=== PATIENT | female | born 1955 | race Caucasian/White ===

== ENCOUNTER 2017-12-14 16:37 | Outpatient (CLI) | payer OTHER | END 2017-12-14 16:38 | disposition critical access hospital (66) | LOC: EMS 16:37 | PROVIDERS: ATTEND Surgery | DX: R06.02 Shortness of breath (principal); R07.9 Chest pain, unspecified | CPT/HCPCS: A0425; A0427 ==

== ENCOUNTER 2017-12-14 17:06 | Emergency (ER) | payer OTHER ==
[2017-12-14] MEDS ORDERED: IOPAMIDOL-300 100 ML VIAL IVP ONE ×2 (17:07→20:33)
--- NOTE | 2017-12-14 17:45 | XRAY Preliminary Report ---
Exam: XR CHEST 2 VIEW X-RAY IMPRESSION: 1. Bibasilar dependent atelectasis and a small right pleural effusion. Basilar pneumonia not excluded . [facility] SITE ID: [id number]
--- NOTE | 2017-12-14 17:45 | XRAY Report ---
EXAM: CHEST RADIOGRAPHY EXAM DATE: 12/14/2017 05:29 PM. CLINICAL HISTORY: Chest pain. COMPARISON: None. TECHNIQUE: 2 views. FINDINGS: Lungs/Pleura: There are bibasilar dependent patchy densities. There is mild blunting of the lateral r ight costophrenic angle. The mid and upper lung zones are clear. No pneumothorax. Mediastinum: Heart and mediastinal contours are unremarkable. Other: None. IMPRESSION: 1. Bibasilar dependent atelectasis and a small right pleural effusion. Basilar pneumonia not excluded . [facility] Referring Provider Line: [phone] SITE ID: [id number]
--- NOTE | 2017-12-14 18:07 | ED Physician Documentation ---
PD HPI CHEST PAIN - Stated complaint Stated Complaint: SOA - Chief complaint Chief Complaint: Cardiac - History obtained from History obtained from: Patient, EMS - History of Present Illness Timing - onset: Last night Timing - onset during: Rest Timing - duration: Days (1) Timing - details: Abrupt onset, Still present (onet left thoracic pain with lying on side, some positions/movements, and particularly with breathing even moderately deeply.) Quality: Sharp, Stabbing, Pain Location: Left chest, Left shoulder/arm, Upper back Radiation: Back. No: Neck, Abdominal Improved by: Rest Worsened by: Exertion, Inspiration, Position. No: Palpation Associated symptoms: Shortness of air, Other (had had long car ride to [place] in October and also plane flight. No leg edema nor calf swelling. Had some calf cramping pains last night.). No: Nausea, Vomiting, Feeling faint / dizzy, General Weakness, Palpitations, Cough Similar symptoms before: Has not had sx before Recently seen: Not recently seen Review of Systems Constitutional: denies: Fever, Chills, Myalgias Nose: reports: Congestion. denies: Rhinorrhea / runny nose Throat: denies: Sore throat Cardiac: denies: Palpitations, Pedal edema, Calf pain Respiratory: reports: Dyspnea. 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 - Present Medications Home Medications: Ambulatory Orders Medication Instructions Recorded Confirmed Dexamethasone [Decadron] 4 mg PO DAILY #5 tablet 12/14/17 Doxycycline Monohydrate 100 mg PO BID #14 tablet 12/14/17 Estrogens, Conjugated [Premarin] 12/14/17 Methocarbamol [Robaxin] 500 mg PO Q6H PRN #20 tablet 12/14/17 Oxycodone HCl/Acetaminophen 1 each PO Q6H PRN #20 tablet 12/14/17 [Percocet 5-325 mg Tablet] - Allergies Allergies/Adverse Reactions: Allergies Allergy/AdvReac Type Severity Reaction Status Date / Time No Known Drug Allergies Allergy Verified 12/14/17 17:15 - Social History Does the pt smoke?: No Smoking Status: Never smoker Does the pt drink ETOH?: Yes Does the pt have substance abuse?: No - POLST Patient has POLST: No PD ED PE NORMAL - Vitals Vital signs reviewed: Yes - General General: Alert and oriented X 3, No acute distress, Well developed/nourished - HEENT HEENT: Moist mucous membranes, Pharynx benign - Neck Neck: Supple, no meningeal sign, No adenopathy - Cardiac Cardiac: RRR, No murmur, No rub - Respiratory Respiratory: Clear bilaterally, Other (guarded/ splinted breaths due to pain left back. ) - Abdomen Abdomen: Soft, Non tender - Female Female : Deferred - Rectal Rectal: Deferred - Back Back: No CVA TTP, No spinal TTP, Other (left scapular area tenderness without rash nor sores. No deformity. ) - Derm Derm: Normal color, Warm and dry, No rash - Extremities Extremities: No deformity, No tenderness to palpate - Neuro Neuro: Alert and oriented X 3, No motor deficit, Normal speech Results - Vitals Vitals: Vital Signs - 24 hr 12/14/17 12/14/17 12/14/17 17:08 19:03 20:00 Temperature 36.7 C Heart Rate 96 94 88 Respiratory 20 20 20 Rate Blood Pressure 143/88 H 128/86 H 121/106 H O2 Saturation 100 98 95 12/14/17 12/14/17 12/14/17 20:30 21:00 22:11 Temperature Heart Rate 87 86 85 Respiratory 18 Rate Blood Pressure 124/80 133/81 H 119/87 H O2 Saturation 93 95 Oxygen O2 Source Room air - Labs Labs: Laboratory Tests 12/14/17 12/14/17 12/14/17 18:36 18:36 18:36 WBC 8.0 RBC 4.56 Hgb 13.3 Hct 40.6 MCV 88.9 MCH 29.2 MCHC 32.9 RDW 14.0 Plt Count 352 MPV 8.3 Neut # 5.6 Lymph # 1.5 [place] # 0.6 Eos # 0.1 Baso # 0.1 Absolute Nucleated RBC 0.00 Nucleated RBC % 0.0 Sodium 137 Potassium 3.8 Chloride 102 Carbon Dioxide 27 Anion Gap 8.0 BUN 13 Creatinine 0.5 Estimated GFR (MDRD) 126 Glucose 96 Calcium 9.0 Total Bilirubin 0.8 AST 13 ALT 14 Alkaline Phosphatase 66 Troponin I < 0.04 Total Protein 8.0 Albumin 4.3 Globulin 3.7 Albumin/Globulin Ratio 1.2 Lipase 21 L - Rads (name of study) chest xray Radiology: Prelim report reviewed (mild infiltrate left base. No PTX. ) chest angio Radiology: Prelim report reviewed (no PE nor dissection. No lung masses. Infiltrates noted. Adrenal mass noted with suggested follow up imaging at interval. ) PD MEDICAL DECISION MAKING - ED course Complexity details: reviewed results (no dissection, PE, PTX. She has some infiltrates more left base but had not had fever/cough. Consider just atelectasis from splinted breathing but will cover with abx. No masses in lungs. Incidental adrenal mass/cyst. Defer to PMD for follow up. ), re- evaluated patient (feeling much better with IV meds. May have musculoskeletal component of the pain, and has pleuritic significantly. Infiltrate could be result of splinted breathing, but also concern for pneumonic process. ), considered differential, d/w patient Departure - Departure Disposition: 01 Home, Self Care Clinical Impression: Lung infiltrate, Pleurisy, Adrenal mass, left Acute thoracic back pain Qualifiers: Back pain laterality: left Qualified Code(s): M54.6 - Pain in thoracic spine Condition: Stable Record reviewed to determine appropriate education?: Yes Instructions: ED Chest Pain Pleurisy Follow-Up: Sharon Martinez PA [Primary Care Provider] - Prescriptions: Dexamethasone [Decadron] 4 mg PO DAILY #5 tablet Doxycycline Monohydrate 100 mg PO BID #14 tablet Methocarbamol [Robaxin] 500 mg PO Q6H PRN #20 tablet PRN Reason: Spasms Oxycodone HCl/Acetaminophen [Percocet 5-325 mg Tablet] 1 each PO Q6H PRN #20 tablet PRN Reason: Pain Comments: This may be musculoskeletal back pain though you do have a component of it sounded very pleuritic (hurting with breathing) and there was some finding of a fluid collection in the lower part of the left lung. This could be a infection or pneumonia brewing that caused inflammation and therefore the pain. However the pain and splinting breathing may have caused some compression of the lung and gave that appearance (called atelectasis). We will treated as possible infection with antibiotic doxycycline twice a day for a week. Otherwise use some anti-inflammatories such as ibuprofen or naproxen twice daily and to that add Decadron steroid anti-inflammatory, Robaxin muscle relaxant, and Tylenol or oxycodone for pain as needed. Recheck if not better completely over the next several days. There was an incidental finding of an adrenal cyst and the radiology recommendation was her repeat imaging and perhaps 6 months to make sure it is not changing. This could be done by ultrasound through your primary care. Discharge Date/Time: 12/14/17 22:24
[2017-12-14] MEDS ORDERED: ONDANSETRON 4 MG/2 ML VIAL IVP STA (18:30)
[2017-12-14] MEDS ORDERED: HYDROmorphone 1 MG/ML CARPUJECT IVP STA ×2 (18:30→21:36)
[2017-12-14] MEDS ORDERED: KETOROLAC 60 MG/2 ML VIAL IVP STA (18:30)
[2017-12-14] MEDS ORDERED: IOPAMIDOL-300 100 ML VIAL ONE (18:44)
[2017-12-14 19:04] LABS: BASOPHILS # (AUTO) 0.1 10^3/uL (0.0-0.1); BASOPHILS % (AUTO) 0.7 %; EOSINOPHILS # (AUTO) 0.1 10^3/uL (0.0-0.7); EOSINOPHILS % (AUTO) 1.7 %; HGB - HEMOGLOBIN 13.3 g/dL (12.0-16.0); LYMPHOCYTES # (AUTO) 1.5 10^3/uL (1.5-3.5); LYMPHOCYTES % (AUTO) 19.2 %; MEAN CORPUSCULAR HEMOGLOBIN 29.2 pg (27.0-31.0); MEAN CORPUSCULAR HGB CONC 32.9 g/dL (32.0-36.0); MEAN CORPUSCULAR VOLUME 88.9 fL (81.0-99.0); MEAN PLATELET VOLUME 8.3 fL (7.9-10.8); MONOCYTES # (AUTO) 0.6 10^3/uL (0.0-1.0); MONOCYTES % (AUTO) 7.8 %; NEUTROPHILS # (AUTO) 5.6 10^3/uL (1.5-6.6); NEUTROPHILS % (AUTO) 70.6 %; PLT - PLATELET COUNT 352 10^3/uL (130-450); RED BLOOD COUNT 4.56 10^6/uL (4.20-5.40)
[2017-12-14 19:16] LABS: ALBUMIN 4.3 g/dL (3.2-5.5); ALBUMIN/GLOBULIN RATIO 1.2 (1.0-2.2); BILIRUBIN,TOTAL 0.8 mg/dL (0.2-1.0); CREATININE 0.5 mg/dL (0.4-1.0)
--- NOTE | 2017-12-14 20:54 | CT Preliminary Report ---
Exam: CT CHEST ANGIO (PE) IMPRESSION: 1. No evidence for pulmonary emboli. Mild motion artifact limited. 2. oderate patchy bilateral lower lobe airspace disease and consolidations with a mild amount in the right middle lobe and lingula. These could represent bibasilar pneumonia and/or atelectasis. Breathin g motion artifact limited. Minimal left pleural effusion. 3. Left adrenal mass measuring 2.3 cm. If there is low risk for malignancy, recommend a one-year foll ow-up MR CT adrenal mass protocol to confirm stability. If there is high risk for malignancy/metastas is then more immediate workup recommended. Otherwise, as above. [facility] SITE ID: [id number]
--- NOTE | 2017-12-14 21:00 | CT Report ---
EXAM: CT ANGIOGRAM CHEST EXAM DATE: 12/14/2017 08:33 PM. CLINICAL HISTORY: Left pleuritic back/chest pain onset last night. COMPARISON: Chest 12/14/2017. TECHNIQUE: Routine helical imaging was performed through the chest in the pulmonary arterial phase. I V Contrast: 80 mL Isovue 300. Reconstructions: Coronal 3-D MIP reconstructions.Sagittal and coronal. In accordance with CT protocol optimization, one or more of the following dose reduction techniques w ere utilized for this exam: automated exposure control, adjustment of mA and/or KV based on patient s ize, or use of iterative reconstructive technique. FINDINGS: Mediastinum: No thoracic aortic aneurysm or dissection. Cardiomegaly. No mediastinal or hil ar lymphadenopathy. Pulmonary arteries: No evidence for a pulmonary emboli. Mild motion artifact limited. Lungs: Moderate patchy bilateral lower lobe airspace disease and consolidations with a mild amount in the right middle lobe and lingula. These could represent bibasilar pneumonia and/or atelectasis. Sparkle athing motion artifact limited. Minimal left pleural effusion. No pneumothorax. Upper abdomen: Left adrenal mass measures 2.3 x 2.3 cm. Couple of small low-density masses are seen i n the left hepatic lobe, largest seen in the lateral segment of the left hepatic lobe measuring 9 mm, too small to fully characterize. Osseous fusion of the T3 and T4 vertebrae. No acute bone findings seen. IMPRESSION: 1. No evidence for a pulmonary emboli. Mild motion artifact limited. 2. Moderate patchy bilateral lower lobe airspace disease and consolidations with a mild amount in the right middle lobe and lingula. These could represent bibasilar pneumonia and/or atelectasis. Breathi ng motion artifact limited. Minimal left pleural effusion. 3. Left adrenal mass measuring 2.3 cm. If there is low risk for malignancy, recommend a one-year foll ow-up MR CT adrenal mass protocol to confirm stability. If there is high risk for malignancy/metastas is, then more immediate workup recommended. Otherwise, as above. [facility] Referring Provider Line: [phone] SITE ID: [id number]
[2017-12-14] MEDS ORDERED: oxyCODONE/ACET 5/325 Prepack 4 PO STA (21:36)
[2017-12-14] MEDS ORDERED: DOXYCYCLINE 100 MG TABLET PO STA (21:36)
[2017-12-14] MEDS ORDERED: DEXAMETHASONE 10 MG/ML VIAL IVP STA (21:36)
[2017-12-14 22:11] VITALS: BP 119/87
== END 2017-12-14 22:24 | disposition home or self-care (01) ==
LOC: ED 17:06
DX: R91.8 Other nonspecific abnormal finding of lung field (principal); R09.1 Pleurisy; E27.8 Other specified disorders of adrenal gland
CPT/HCPCS: 36415; 71046; 71275; 80053; 83690; 84484; 85025; 93005; 96374; 96375; 96376; 99284; A9270; J1170; Q9967

== ENCOUNTER 2019-08-07 14:57 | Outpatient (CLI) | payer OTHER ==
--- NOTE | 2019-08-21 10:16 | Mammography Report ---
Reason: SCREENING MAMMO Procedure Date: 08/07/2019 Accession Number: [id number] / [id number] Procedure: ERIK - Screening Mammo w/Morris CPT Code: Final Report FULL RESULT: EXAM: Screening Mammo w/Morris DATE: 08/07/2019 3:33 PM CLINICAL HISTORY: The patient is an asymptomatic 64 year-old nulliparous female presenting for screening mammography. No reported family history of breast cancer. TECHNIQUE: (B) - Bilateral CC and MLO views were obtained. COMPARISON: 08/25/2016 and 09/27/2013 ([facility]) PARENCHYMAL PATTERN: (A) - The breasts demonstrate scattered fibroglandular densities bilaterally. FINDINGS: The pattern of isodense nodularity is stable given positional variation. Few scattered and punctate calcifications are noted in both breasts. There are no suspicious masses, calcifications, or areas of distortion. IMPRESSION: Benign findings. BI-RADS category 2. RECOMMENDATION: (ANNUAL) - Recommend routine annual screening mammography. BI-RADS CATEGORY: (2) - Benign Findings. STANDARD QUALIFYING STATEMENTS: 1. This examination was not reviewed with the aid of Computer-Aided Detection (CAD). 2. A negative or benign imaging report should not preclude biopsy if clinically suspicious findings are present. 3. Dense breasts may obscure an underlying neoplasm. 4. This examination was reviewed with the aid of 3D breast imaging (tomosynthesis).
== END 2019-08-07 14:58 | disposition home or self-care (01) ==
LOC: DI 14:57
PROVIDERS: ATTEND Family Medicine
DX: Z12.31 Encounter for screening mammogram for malignant neoplasm of breast (principal)
CPT/HCPCS: 77063; 77067

== ENCOUNTER 2022-08-30 11:04 | Outpatient (CLI) | payer MEDICARE ==
--- NOTE | 2022-08-31 15:22 | Mammography Report ---
BILATERAL DIGITAL SCREENING MAMMOGRAM 3D/2D WITH EXAGGERATED CC: 08/30/2022 CLINICAL: Routine screening. Comparison is made to exams dated: 08/07/2019 mammogram - [facility], 08/25/2016 ma mmogram, and 09/27/2013 mammogram - [facility]. There are scattered areas of fibroglandular density in both breasts (category b / 25%-50% glandular t issue). There is an asymmetry in the right breast middle depth central to the nipple seen on the mediolateral oblique view only. This is more prominent. No other significant masses, calcifications, or other findings are seen in either breast. IMPRESSION: INCOMPLETE: NEEDS ADDITIONAL IMAGING EVALUATION The asymmetry in the right breast is indeterminate. Additional views with possible ultrasound are re commended. Based on the Tyrer Cuzick model (a risk assessment model) the patients lifetime risk is 5.9% and her 10 year risk is 2.8%. According to the ACR, ACS, and NCCN guidelines, an annual breast MRI exam brinda g with mammogram is recommended if the patients lifetime risk is 20% or greater. This exam was interpreted at Station ID: [id number]. NOTE: For mammograms, a report in lay terms will be sent to the patient. Approximately 15% of breast malignancies will not be visualized mammographically. In the management of a palpable breast mass, a negative mammogram must not discourage biopsy of a clinically suspicious lesion. Electronically Signed By: Rory Christensen M.D. lc/:08/30/2022 13:05:43 ACR BI-RADS Category 0: Incomplete 3340F PARENCHYMAL PATTERN: (A) - The breast(s) demonstrate(s) scattered fibroglandular densities. BI-RADS CATEGORY: (0) - 0 Mammo and [place] [id number] Immediate follow-up LATERALITY: (B)
== END 2022-08-30 11:05 | disposition home or self-care (01) ==
LOC: DI.S 11:04
DX: Z12.31 Encounter for screening mammogram for malignant neoplasm of breast (principal); R92.8 Other abnormal and inconclusive findings on diagnostic imaging of breast

== ENCOUNTER 2022-09-17 08:46 | Outpatient (CLI) | payer MEDICARE ==
--- NOTE | 2022-09-17 10:43 | Mammography Report ---
UNILATERAL RIGHT DIGITAL DIAGNOSTIC MAMMOGRAM 3D/2D WITH SPOT COMPRESSION: 09/17/2022 CLINICAL: Patient returns today to evaluate an asymmetry in the right breast. Comparison is made to exams dated: 08/30/2022 mammogram, 08/07/2019 mammogram - [facility], 08/25/2016 mammogram, and 09/27/2013 mammogram - [facility]. There are scattered areas of fibroglandular density in the right breast (category b / 25%-50% glandul ar tissue). There is a 7 mm oval, bilobed, low density asymmetry with a circumscribed margin in the right breast at 1 o'clock middle depth. This is confirmed with additional views. No other significant masses or calcifications are seen in the breast. IMPRESSION: INCOMPLETE: NEEDS ADDITIONAL IMAGING EVALUATION The 7 mm oval low density asymmetry in the right breast most likely is clustered cysts or a lymph nod e but remains indeterminate. An ultrasound is recommended. This was performed immediately following this exam. Based on the Tyrer Cuzick model (a risk assessment model) the patients lifetime risk is 5.4% and her 10 year risk is 2.6%. According to the ACR, ACS, and NCCN guidelines, an annual breast MRI exam brinda g with mammogram is recommended if the patients lifetime risk is 20% or greater. This exam was interpreted at Station ID: [id number]. NOTE: For mammograms, a report in lay terms will be sent to the patient. Approximately 15% of breast malignancies will not be visualized mammographically. In the management of a palpable breast mass, a negative mammogram must not discourage biopsy of a clinically suspicious lesion. Electronically Signed By: Fabiola bullock/:09/17/2022 09:27:06 ACR BI-RADS Category 0: Incomplete 3340F PARENCHYMAL PATTERN: (A) - The breast(s) demonstrate(s) scattered fibroglandular densities. BI-RADS CATEGORY: (0) - 0 Ultrasound [id number] Immediate follow-up LATERALITY: (B)
--- NOTE | 2022-09-17 10:43 | Ultrasound Report ---
LIMITED ULTRASOUND OF RIGHT BREAST: 09/17/2022 CLINICAL: Patient returns today to evaluate a focal asymmetry in the right breast. Comparison is made to exams dated: 09/17/2022 mammogram, 08/30/2022 mammogram, 08/07/2019 mammogram - [facility], 09/27/2013 mammogram, and 08/25/2016 mammogram - [facility]. Color flow ultrasound of the right breast 1 o'clock and 10 o'clock regions was performed. Flores scale images of the real-time examination were reviewed. There is a 0.7 cm x 0.6 cm x 0.2 cm oval mass with a circumscribed margin in the right breast at 1 o' clock middle depth 8 cm from the nipple. This oval mass is isoechoic to slightly hypoechoic with a w ell-defined boundary and no posterior acoustic shadowing or enhancement. This is subtle, difficult t o differentiate from adjacent tissue. This correlates with mammography findings. Color flow imaging demonstrates that there is no vascularity present. IMPRESSION: PROBABLY BENIGN The 0.7 cm x 0.6 cm x 0.2 cm oval mass in the right breast resembles fibroglandular tissue, a lymph n ode, or a fibroadenoma and is probably benign. A follow-up right mammogram and an ultrasound in 6 months is recommended to demonstrate stability. Findings and recommendations were conveyed to the patient at time of exam. This exam was interpreted at Station ID: [id number]. Electronically Signed By: Fabiola bullock/:09/17/2022 10:00:08 Ultrasound BI-RADS: 3 Probably benign BI-RADS CATEGORY: (3) - 3 Mammo and [place] [id number] 6 month follow-up LATERALITY: (R)
== END 2022-09-17 08:47 | disposition home or self-care (01) ==
LOC: DI 08:46
PROVIDERS: ATTEND Family Medicine
DX: R92.8 Other abnormal and inconclusive findings on diagnostic imaging of breast (principal)

== ENCOUNTER 2023-05-12 16:08 | Emergency (ER) | payer MEDICARE ==
[2023-05-12 16:19] VITALS: BP 137/93; O2SAT 97
--- NOTE | 2023-05-12 17:03 | ED Physician Documentation ---
History of Present Illness - Stated complaint Stated Complaint: CHEST PX - Chief complaint Chief Complaint: Cardiac - History obtained from History obtained from: Patient - History of Present Illness Pain level max: 0 Pain level now: 0 - Additonal information Additional information: Patient is a 68-year-old female who presents the emergency department stating for the past several weeks she has had intermittent palpitations. Has a history of PVCs, she states that her Apple Watch at 1 point stated possible A-fib. Came in for evaluation today. No chest pain. No shortness of breath. No other cardiac history. No history of acute coronary syndrome. No dyspnea. No syncope or near syncope. No leg swelling. No calf swelling. 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 - Present Medications Home Medications: Ambulatory Orders Medication Instructions Recorded Confirmed Doxycycline Monohydrate 100 mg PO BID #14 tablet 12/14/17 Estrogens, Conjugated [Premarin] 12/14/17 Oxycodone HCl/Acetaminophen 1 each PO Q6H PRN #20 tablet 12/14/17 [Percocet 5-325 mg Tablet] dexAMETHasone [Decadron] 4 mg PO DAILY #5 tablet 12/14/17 methocarbamoL [Robaxin] 500 mg PO Q6H PRN #20 tablet 12/14/17 - Allergies Allergies/Adverse Reactions: Allergies Allergy/AdvReac Type Severity Reaction Status Date / Time No Known Drug Allergies Allergy Verified 05/12/23 16:14 - Social History Does the pt smoke?: No Smoking Status: Never smoker Does the pt drink ETOH?: Yes Does the pt have substance abuse?: No - POLST Patient has POLST: No PD ED PE NORMAL - Vitals Vital signs reviewed: Yes - General General: Alert and oriented X 3, No acute distress - HEENT HEENT: Moist mucous membranes - Neck Neck: Supple, no meningeal sign - Cardiac Cardiac: RRR, No murmur, Strong equal pulses - Respiratory Respiratory: No respiratory distress, Clear bilaterally - Abdomen Abdomen: Soft, Non tender, Non distended - Derm Derm: Warm and dry - Extremities Extremities: No edema, No calf tenderness / cord - Neuro Neuro: Alert and oriented X 3 - Psych Psych: Normal mood, Normal affect Results - Vitals Vitals: Vital Signs - 24 hr 05/12/23 16:10 Temperature 36.8 C Heart Rate 94 Respiratory 16 Rate Blood Pressure 137/93 H O2 Saturation 97 Oxygen O2 Source Room air - EKG (time done) 1620 EKG releavant findings:: EKG personally interpreted by author of this note. Relevant findings are: Rate: Rate (enter#) (90) Rhythm: NSR, Other (PVC) [place]: Normal Intervals: Normal RI QRS: Normal Ischemia: Normal ST segments, Q waves (III) - Labs Labs: Laboratory Tests 05/12/23 05/12/23 05/12/23 16:56 16:56 16:56 WBC 8.7 RBC 4.58 Hgb 13.3 Hct 41.7 MCV 91.0 MCH 29.0 MCHC 31.9 L RDW 14.7 Plt Count 291 MPV 11.0 H Neut # (Auto) 5.4 Lymph # (Auto) 2.5 [place] # (Auto) 0.6 Eos # (Auto) 0.2 Baso # (Auto) 0.1 Absolute Nucleated RBC 0.00 Nucleated RBC % 0.0 Sodium 137 Potassium 4.0 Chloride 104 Carbon Dioxide 26 Anion Gap 7.0 BUN 20 Creatinine 0.6 Estimated GFR (MDRD) 100 Glucose 90 Calcium 9.9 Phosphorus 4.4 Magnesium 1.9 Total Bilirubin 0.5 AST 11 ALT 11 Alkaline Phosphatase 62 Troponin I High Sens < 2.3 L Total Protein 7.6 Albumin 4.3 Globulin 3.3 Albumin/Globulin Ratio 1.3 Lipase 22 PD Medical Decision Making - ED course Complexity details: reviewed results, re-evaluated patient, considered differential, d/w patient ED course: 68-year-old female with frequent PVCs. Her Apple Watch tracings are consistent with sinus rhythm and PVCs, not atrial fibrillation. No significant lab abnormalities. No significant electrolyte abnormalities. Asymptomatic here. Recommend that she follow-up with her doctor for further care. Patient counseled regarding signs and symptoms for which I believe and urgent re- evaluation would be necessary. Patient with good understanding of and agreement to plan and is comfortable going home at this time This document was made in part using voice recognition software. While efforts are made to proofread this document, sound alike and grammatical errors may occur. Departure - Departure Disposition: 01 Home, Self Care Clinical Impression: Premature ventricular contraction Condition: Good Instructions: Premature Ventricular Contract About, Premature Ventricular Contract Tx Follow-Up: JENNIFER GARCIA DO [Primary Care Provider] - Comments: Your blood work does not show any acute abnormalities today. You do have frequent premature ventricular contractions. Your doctor may want to place you on a Holter monitor or Zio patch. This will help to define how often the PVCs are occurring and then treatment decisions can be made with cardiology. Please return if you worsen. Forms: PCP List Discharge Date/Time: 05/12/23 17:47
[2023-05-12 17:08] LABS: BASOPHILS # (AUTO) 0.1 10^3/uL (0.0-0.1); BASOPHILS % (AUTO) 0.8 %; EOSINOPHILS # (AUTO) 0.2 10^3/uL (0.0-0.7); EOSINOPHILS % (AUTO) 1.9 %; HCT - HEMATOCRIT 41.7 % (37.0-47.0); HGB - HEMOGLOBIN 13.3 g/dL (12.0-16.0); LYMPHOCYTES # (AUTO) 2.5 10^3/uL (1.5-3.5); LYMPHOCYTES % (AUTO) 28.5 %; MEAN CORPUSCULAR HGB CONC 31.9 g/dL (32.0-36.0); MONOCYTES # (AUTO) 0.6 10^3/uL (0.0-1.0); MONOCYTES % (AUTO) 6.9 %; NEUTROPHILS # (AUTO) 5.4 10^3/uL (1.5-6.6); NEUTROPHILS % (AUTO) 61.8 %; PLT - PLATELET COUNT 291 10^3/uL (130-450); RED BLOOD COUNT 4.58 10^6/uL (4.20-5.40); RED CELL DISTRIBUTION WIDTH 14.7 % (12.0-15.0); WHITE BLOOD COUNT 8.7 x10^3/uL (4.8-10.8)
[2023-05-12 17:21] LABS: ALBUMIN 4.3 g/dL (3.2-5.5); ALBUMIN/GLOBULIN RATIO 1.3 (1.0-2.2); BILIRUBIN,TOTAL 0.5 mg/dL (0.2-1.0); CALCIUM 9.9 mg/dL (8.5-10.3); CREATININE 0.6 mg/dL (0.6-1.3); MAGNESIUM 1.9 mg/dL (1.7-2.3); PHOSPHORUS 4.4 mg/dL (2.5-5.0); TOTAL PROTEIN 7.6 g/dL (6.4-8.9)
== END 2023-05-12 17:47 | disposition home or self-care (01) ==
LOC: ED 16:08
DX: I49.3 Ventricular premature depolarization (principal); Z79.899 Other long term (current) drug therapy
CPT/HCPCS: 36415; 80053; 83690; 83735; 84100; 84484; 85025; 93005; 99283; 99284

== ENCOUNTER 2023-06-23 10:47 | Outpatient (CLI) | payer MEDICARE ==
--- NOTE | 2023-06-24 08:23 | Ultrasound Report ---
LIMITED ULTRASOUND OF LEFT BREAST: 06/23/2023 CLINICAL: Patient returns today to evaluate asymmetries in bilateral breasts. Comparison is made to exams dated: 06/23/2023 mammogram, 09/17/2022 ultrasound, 09/17/2022 mammogram, 08/30/2022 mammogram, 08/07/2019 mammogram - [facility], and 08/25/2016 mammogram - [facility]. Color flow ultrasound of the left breast 12 o'clock region was performed on the areas of interest. G ray scale images of the real-time examination were reviewed. There is a 0.3 cm irregular mass in the left breast at 12 o'clock posterior depth. This irregular ma ss is hypoechoic. This correlates with mammography findings. Color flow imaging demonstrates that t here is no vascularity present. The left axilla was interogated and normal appearing lymph nodes are visualized. IMPRESSION: SUSPICIOUS OF MALIGNANCY No left axillary adenopathy. The 0.3 cm irregular mass in the left breast is at a low suspicion for malignancy. An ultrasound rand ded biopsy is recommended. This exam was interpreted at Station ID: [id number]. SUMMARY: This was discussed with the patient by the radiologist Dr. Kimbrough at the time of the exam. Electronically Signed By: Almaz lucia/:06/23/2023 12:09:59 Ultrasound BI-RADS: 4a Low suspicion for malignancy BI-RADS CATEGORY: (4a) - Low Susp Biopsy follow-up [id number] Immediate follow-up LATERALITY: (B)
--- NOTE | 2023-06-24 08:23 | Mammography Report ---
BILATERAL DIGITAL DIAGNOSTIC MAMMOGRAM 3D/2D: 06/23/2023 CLINICAL: Patient returns for a 6 month follow up of the right breast, due for bilateral exam. Comparison is made to exams dated: 09/17/2022 mammogram, 08/30/2022 mammogram, 08/07/2019 mammogram - [facility], 08/25/2016 mammogram, and 09/27/2013 mammogram - [facility]. There are scattered areas of fibroglandular density in both breasts (category b / 25%-50% glandular t issue). There is a stable focal asymmetry in the right breast at 2 o'clock posterior depth. There is a focal asymmetry in the left breast at 12 o'clock posterior depth. There is architectural distortion associated with the focal asymmetry. No other significant masses or calcifications are seen in either breast. IMPRESSION: INCOMPLETE: NEEDS ADDITIONAL IMAGING EVALUATION The stable focal asymmetry in the right breast at 2 o'clock posterior depth is indeterminate. The focal asymmetry in the left breast at 12 o'clock posterior depth is indeterminate. A targeted ultrasound of the bilateral breasts is recommended and will be performed immediately follo wing this exam. Based on the Tyrer Cuzick model (a risk assessment model) the patients lifetime risk is 5.2% and her 10 year risk is 2.6%. According to the ACR, ACS, and NCCN guidelines, an annual breast MRI exam brinda g with mammogram is recommended if the patients lifetime risk is 20% or greater. This exam was interpreted at Station ID: [id number]. NOTE: For mammograms, a report in lay terms will be sent to the patient. Approximately 15% of breast malignancies will not be visualized mammographically. In the management of a palpable breast mass, a negative mammogram must not discourage biopsy of a clinically suspicious lesion. Electronically Signed By: Almaz Higgins M.D. lk/:06/23/2023 11:47:31 ACR BI-RADS Category 0: Incomplete 3340F PARENCHYMAL PATTERN: (A) - The breast(s) demonstrate(s) scattered fibroglandular densities. BI-RADS CATEGORY: (0) - 0 Ultrasound [id number] Immediate follow-up LATERALITY: (B)
--- NOTE | 2023-06-24 08:23 | Ultrasound Report ---
LIMITED ULTRASOUND OF RIGHT BREAST: 06/23/2023 CLINICAL: Patient returns today to evaluate asymmetries in bilateral breasts. Comparison is made to exams dated: 06/23/2023 ultrasound, 06/23/2023 mammogram, 09/17/2022 ultrasound, 09/17/2022 mammogram, 08/30/2022 mammogram, and 08/07/2019 mammogram - [facility]. Color flow and real-time ultrasound of the right breast 1-2 o'clock region were performed on the area s of interest. Flores scale images of the real-time examination were reviewed. IMPRESSION: PROBABLY BENIGN There is no sonographic evidence of malignancy. There is no sonographic abnormality seen in the right breast to correspond with the mammography focal asymmetry. A follow-up mammogram and an ultrasound in 6 months is recommended to demonstrate stability. This exam was interpreted at Station ID: [id number]. Electronically Signed By: Almaz Higgins M.D. lk/:06/23/2023 12:07:53 Entry: dylan - 06/24/2023 08:16:57 Ultrasound BI-RADS: 3 Probably benign BI-RADS CATEGORY: (3) - 3 Mammo and [place] [id number] 6 month follow-up LATERALITY: (B)
== END 2023-06-23 10:48 | disposition home or self-care (01) ==
LOC: DI 10:47
PROVIDERS: ATTEND Family Medicine
DX: N63.25 Unspecified lump in the left breast, overlapping quadrants (principal); R92.8 Other abnormal and inconclusive findings on diagnostic imaging of breast

== ENCOUNTER 2023-07-14 08:43 | Outpatient (CLI) | payer MEDICARE ==
[2023-07-14] MEDS ORDERED: LIDOCAINE-MPF 1% 5 ML VIAL ONE (09:14)
[2023-07-14] MEDS ORDERED: LIDOCAINE-MPF 1% 5 ML VIAL TD ONE (10:40)
--- NOTE | 2023-07-14 12:16 | Ultrasound Report ---
PROCEDURE: Biopsy Breast Core INDICATIONS: ABN MAMMO - LT BREAST MASS TECHNIQUE: The indications, alternatives, benefits, risks, and complications of the procedure were e xplained to the patient. Written informed consent was obtained and placed in the chart. Real-time sonography was utilized to choose the site for the percutaneous breast biopsy. The skin wa s prepped and draped in the usual sterile fashion. 1% lidocaine was infiltrated down to the site of interest. A coaxial needle was then advanced into the site of interest under direct sonographic visu alization. A biopsy apparatus was then utilized, and core biopsies were obtained. The needle was th en withdrawn; a bandage was applied to the biopsy site. COMPARISON: Breast ultrasound on June 23, 2023. FINDINGS: Biopsy site(s): Left breast irregular hypoechoic mass measuring 0.3 cm at 12:00 posterior depth, 7 c m from the nipple Needle: 13-gaugebiopsy needle/aspiration set was utilized. Number of passes: 5 Medications: 1% lidocaine for local anaesthesia. Complications: None. IMPRESSION: Successful ultrasound-guided breast biopsy with clip placement, Pathology results are pe nding. Reviewed by: Cora Browne MD on 07/14/2023 12:15 PM PDT Approved by: Cora Browne MD on 07/14/2023 12:15 PM PDT Station ID: [id number]
--- NOTE | 2023-07-15 10:50 | Mammography Report ---
UNILATERAL LEFT DIGITAL DIAGNOSTIC MAMMOGRAM POST-PROCEDURE IMAGING FOR MARKER PLACEMENT: 07/14/2023 CLINICAL: Post left breast ultrasound biopsy clip placement imaging. Comparison is made to exam dated: 06/23/2023 mammogram - [facility]. There are scattered areas of fibroglandular density in the left breast (category b / 25%-50% glandula r tissue). The patient is status post ultrasound guided biopsy. The biopsy marker is in the expected location on ML view and appears 1.6 cm anterolateral to the mammographic finding on CC view. Please see separately dictated ultrasound guided biopsy report for additional findings and pathology report. IMPRESSION: POST PROCEDURE MAMMOGRAM FOR MARKER PLACEMENT The patient is status post ultrasound guided biopsy. The biopsy marker is in the expected location on ML view and appears 1.6 cm anterolateral to the mammographic finding on CC view. Please see separate ly dictated ultrasound guided biopsy report for additional findings and pathology report. Based on the Tyrer Cuzick model (a risk assessment model) the patients lifetime risk is 5.2% and her 10 year risk is 2.6%. According to the ACR, ACS, and NCCN guidelines, an annual breast MRI exam brinda g with mammogram is recommended if the patients lifetime risk is 20% or greater. This exam was interpreted at Station ID: [id number]. NOTE: For mammograms, a report in lay terms will be sent to the patient. Approximately 15% of breast malignancies will not be visualized mammographically. In the management of a palpable breast mass, a negative mammogram must not discourage biopsy of a clinically suspicious lesion. Electronically Signed By: Cora Browne M.D. aj/:07/15/2023 10:22:08 Entry: - 07/15/2023 10:22:08 ACR BI-RADS Category Post-procedure mammogram for marker placement PARENCHYMAL PATTERN: (A) - The breast(s) demonstrate(s) scattered fibroglandular densities. BI-RADS CATEGORY: () - Unspecified - other recall n/a LATERALITY: (B)
== END 2023-07-14 08:44 | disposition home or self-care (01) ==
LOC: DI 08:43
PROVIDERS: ATTEND Family Medicine
DX: C50.812 Malignant neoplasm of overlapping sites of left female breast (principal); Z17.0 Estrogen receptor positive status [ER+]; R92.322 Mammographic fibroglandular density, left breast
CPT/HCPCS: 19083

== ENCOUNTER 2024-03-16 14:32 | Outpatient (CLI) | payer MEDICARE, OTHER ==
--- NOTE | 2024-03-16 21:29 | DEXA Report ---
PROCEDURE: Dexa Spine and/or Hip INDICATIONS: POST MENOPAUSAL TECHNIQUE: Dual energy x-ray absorptiometry (DXA) was performed on a [employer] System. Regions measur ed are the AP Spine, femoral neck, and if needed forearm. COMPARISON: None FINDINGS: Lumbar Spine: Bone Mineral Density: 1.036 g/cm/cm,T score: -1.2. Left Femoral Neck: Bone Mineral Density: 0.835 g/cm/cm, T score: -1.5. Left Hip: Bone Mineral Density: 0.874 g/cm/cm,T score: -1.1. (T score greater or equal to -1.0: NORMAL) (T score from -1.1 to -2.4: OSTEOPENIA) (T score less than or equal to -2.5 to: OSTEOPOROSIS) Impression: By WHO criteria, this patient has low bone density (osteopenia). Patients with diagnosis of osteoporosis or osteopenia should have regular bone mineral density assess ment. For those eligible for Medicare, routine testing is allowed once every 2 years. Testing frequ ency can be increased for patients who have rapidly progressing disease or for those who are receivin g medical therapy to restore bone mass. Reviewed by: Akil Rodriguez MD on 03/16/2024 9:28 PM PDT Approved by: Akil Rodriguez MD on 03/16/2024 9:28 PM PDT Station ID: [id number]
== END 2024-03-16 14:33 | disposition home or self-care (01) ==
LOC: DI 14:32
PROVIDERS: ATTEND Student in an Organized Health Care Education/Training Program
DX: M85.89 Other specified disorders of bone density and structure, multiple sites (principal); C50.919 Malignant neoplasm of unspecified site of unspecified female breast; Z79.818 Long term (current) use of other agents affecting estrogen receptors and estrogen levels